=== PATIENT | female | born 1995 | race Two or more races ===

== ENCOUNTER 2019-10-28 12:05 | Outpatient (CLI) | payer OTHER ==
[2019-10-28 12:42] LABS: MICROSCOPIC INDICATED
[2019-10-28] MEDS ORDERED: ONDANSETRON 2MG/ML, 2ML ONE (12:43)
[2019-10-28 13:00] LABS: RAPID INFLUENZA A Negative (Negative); RAPID INFLUENZA B Negative (Negative)
[2019-10-28] MEDS ORDERED: PLEASE ENTER HEIGHT AND WEIGHT MC SCH (13:00)
[2019-10-28] MEDS ORDERED: ONDANSETRON 2MG/ML, 2ML IVPush PRN (13:00)
[2019-10-28] MEDS ORDERED: LACTATED RINGERS 1,000 ML IVBOLUS ONE (13:00)
[2019-10-28] MEDS ORDERED: D5%-LACTATED RINGERS 1,000 ML IV SCH (13:00)
[2019-10-28] MEDS ORDERED: ONDA4TAB7 PO (14:31)
== END 2019-10-28 15:01 | disposition home or self-care (01) ==
LOC: LDOP 12:05
PROVIDERS: ATTEND Obstetrics & Gynecology
DX: O21.2 Late vomiting of pregnancy (principal); O99.613 Diseases of the digestive system complicating pregnancy, third trimester; K52.9 Noninfective gastroenteritis and colitis, unspecified; O26.893 Other specified pregnancy related conditions, third trimester; R25.2 Cramp and spasm; Z3A.33 33 weeks gestation of pregnancy
CPT/HCPCS: 59025; 81001; 87400; 96361; 96374; 99201; J2405; J7120; 96360; G0463

== ENCOUNTER 2019-12-13 12:13 | Inpatient (IN) | payer OTHER ==
[~2019-12-13] VITALS: Ht 160 cm; Wt 99.1 kg
[~2019-12-13 12:13] MED LIST: ONDA4TAB7 PO
[2019-12-13 20:48] VITALS: BP 121/79
[2019-12-13] MEDS: LACTATED RINGERS 1,000 ML IV SCH (21:30)
[2019-12-13] MEDS ORDERED: OXYTOCIN 30U/ 0.9% NaCL 500ML 500 ML IV ONE (21:31)
[2019-12-13] MEDS ORDERED: MISOPROSTOL 200 MCG TABLET ONE (21:48)
[2019-12-13] MEDS ORDERED: NEWBORN KIT ONE (21:48)
[2019-12-13] MEDS ORDERED: MISOPROSTOL 25 MCG TABLET ONE (21:48)
[2019-12-13] MEDS ORDERED: LIDOCAINE 1%, 20ML ONE (21:48)
[2019-12-13 21:51] LABS: BASOPHILS # (AUTO) 0.01 x10^3/uL (0-0.1); BASOPHILS % (AUTO) 0 % (0-1); EOSINOPHILS # (AUTO) 0.06 x10^3/uL (0-0.4); EOSINOPHILS % (AUTO) 1 % (1-7); LYMPHOCYTES # (AUTO) 2.51 x10^3/uL (1-3.4); LYMPHOCYTES % (AUTO) 29 % (22-44); MD NO; MEAN CORPUSCULAR HGB CONC 34.1 g/dL (32.4-35.8); MEAN CORPUSCULAR VOLUME 88.1 fL (80-100); MEAN PLATELET VOLUME 10.5 fL (7.4-10.4); MONOCYTES # (AUTO) 0.53 x10^3/uL (0.2-0.8); MONOCYTES % (AUTO) 6 % (2-9); NEUTROPHILS % (AUTO) 65 % (42-75); PLATELET COUNT 196 x10^3/uL (130-400); RED BLOOD COUNT 3.99 x10^6/uL (3.82-5.3); RED CELL DISTRIBUTION WIDTH 13.5 % (9.6-15.2)
[2019-12-13] MEDS ORDERED: FENTANYL PF 100 MCG/2ML IVPush PRN (22:00)
[2019-12-13] MEDS ORDERED: ONDANSETRON 2MG/ML, 2ML IVPush PRN (22:00)
[2019-12-13] MEDS ORDERED: TERBUTALINE 1 MG/ML, 1ML IVPush PRN (22:00)
[2019-12-13] MEDS ORDERED: CALCIUM CARBONATE 500 MG TAB.CHEW PO PRN (22:00)
[2019-12-13] MEDS ORDERED: MISOPROSTOL 25 MCG TABLET VG PRN (22:00)
[2019-12-13] MEDS ORDERED: TERBUTALINE 1 MG/ML, 1ML SQ PRN (22:00)
[2019-12-13] MEDS ORDERED: FENTANYL PF 100 MCG/2ML IV PRN (22:00)
[2019-12-14] MEDS: LACTATED RINGERS 1,000 ML IV SCH ×5 (01:08→23:59)
[2019-12-14] MEDS ORDERED: OXYTOCIN 30U/ 0.9% NaCL 500ML 500 ML ONE (03:22)
[2019-12-14] MEDS ORDERED: FENTANYL/BUPIV./NS/PF 250 ML EPIDCONT SCH ×2 (03:24→05:41)
[2019-12-14] MEDS ORDERED: FENTANYL PF 500 MCG, BUPIVACAINE/PF 0.5%, 30ML 62.5 ML in SODIUM CHLORIDE 0.9% 177.5 ML EPIDCONT SCH (03:30)
[2019-12-14] MEDS: OXYTOCIN 30U/ 0.9% NaCL 500ML 500 ML IV PRN ×2 (03:46→08:17)
[2019-12-14] MEDS ORDERED: BUPIVACAINE 0.25% ONE ×2 (04:27→05:00)
[2019-12-14] MEDS ORDERED: FENTANYL PF 100 MCG/2ML ONE ×4 (04:27→23:07)
[2019-12-14] MEDS ORDERED: FENTANYL/BUPIV./NS/PF 250 ML EPIDCONT ONE (05:00)
[2019-12-14] MEDS ORDERED: LIDOCAINE/PF 1.5%-EPI 1:200K, 30ML ONE (05:00)
[2019-12-14] MEDS ORDERED: LACTATED RINGERS 1,000 ML IV SCH (05:41)
[2019-12-14] MEDS ORDERED: EPHEDRINE 50 MG/ML, 1ML IVPush PRN (06:00)
[2019-12-14] MEDS ORDERED: LACTATED RINGERS 1,000 ML IVBOLUS PRN (06:00)
[2019-12-14] MEDS ORDERED: ONDANSETRON 2MG/ML, 2ML IVPush PRN (06:00)
[2019-12-14] MEDS: D5%-LACTATED RINGERS 1,000 ML IV SCH ×2 (06:34→17:06)
[2019-12-14] MEDS: LACTATED RINGERS 1,000 ML INTUTE SCH ×2 (11:27→20:58)
[2019-12-14] MEDS ORDERED: PREN1TAB60 PO (11:28)
[2019-12-14] MEDS ORDERED: LACTATED RINGERS 1,000 ML INTUTE PRN (11:30)
[2019-12-14] MEDS ORDERED: ACETAMINOPHEN 650 MG SUPP PR PRN (17:00)
[2019-12-14] MEDS ORDERED: ACETAMINOPHEN 325 MG TABLET ONE (17:04)
[2019-12-14] MEDS ORDERED: ACETAMINOPHEN 325 MG TABLET PO PRN ×3 (17:30→21:00)
[2019-12-14] MEDS: OXYTOCIN 30U/ 0.9% NaCL 500ML 500 ML IV SCH (20:48)
[2019-12-14] MEDS ORDERED: METOCLOPRAMIDE 5 MG/ML, 2ML IV ONE (21:00)
[2019-12-14] MEDS ORDERED: AZITHROMYCIN 500 MG in SODIUM CHLORIDE 0.9% 250 ML IV ONE (21:00)
[2019-12-14] MEDS ORDERED: CALCIUM CARBONATE 500 MG TAB.CHEW PO PRN (21:00)
[2019-12-14] MEDS: KETOROLAC 30 MG/1 ML IV SCH (21:00)
[2019-12-14] MEDS ORDERED: DIPH,PERTUSS(ACELL),TET VAC/PF NC IM-VACC PRN (21:00)
[2019-12-14] MEDS ORDERED: MEASLES,MUMPS&RUBELLA VACC/PF 0.5 ML SQ-VACC PRN (21:00)
[2019-12-14] MEDS ORDERED: CEFAZOLIN PMX 1GM/50ML 50 ML IVPB ONE (21:00)
[2019-12-14] MEDS ORDERED: SODIUM CITRATE/CITRIC ACID 30 ML UDC PO ONE (21:00)
[2019-12-14] MEDS ORDERED: MISOPROSTOL 200 MCG TABLET PR PRN (21:00)
[2019-12-14] MEDS ORDERED: MORPHINE SULFATE 4 MG/ML, 1ML IVPush PRN (21:00)
[2019-12-14] MEDS ORDERED: ONDANSETRON 2MG/ML, 2ML IV PRN (21:00)
[2019-12-14] MEDS ORDERED: ONDANSETRON 2MG/ML, 2ML ONE (21:04)
[2019-12-14] MEDS ORDERED: CEFAZOLIN 1,000 MG ONE (21:04)
[2019-12-14] MEDS ORDERED: OXYTOCIN 10 UNITS/ML, 1ML ONE (21:04)
[2019-12-14] MEDS ORDERED: HYDROmorphone 2 MG/ML, 1ML ONE (21:04)
[2019-12-14] MEDS ORDERED: SODIUM CHLORIDE 0.9% PF 10ML ONE ×2 (21:05)
[2019-12-14] MEDS ORDERED: KETOROLAC 30 MG/1 ML ONE (21:53)
[2019-12-14] MEDS ORDERED: LIDOCAINE PF 2%, 5ML ONE (21:53)
[2019-12-14] MEDS ORDERED: LIDOCAINE-MPF 2% ,5ML ONE ×3 (22:13)
[2019-12-14] MEDS ORDERED: NEWBORN KIT ONE (22:33)
[2019-12-14] MEDS ORDERED: PROPOFOL 10 MG/ML, 20ML ONE (22:41)
[2019-12-14] MEDS ORDERED: OXYcodone 5 MG/5 ML ORAL.SOL UDC ONE (23:07)
[2019-12-14] MEDS ORDERED: OXYcodone 5 MG/5 ML ORAL.SOL UDC PO PRN (23:30)
[2019-12-14] MEDS: FENTANYL PF 100 MCG/2ML IV PRN ×2 (23:43→23:57)
[2019-12-15 01:00] VITALS: BP 116/80
[2019-12-15 04:05] VITALS: BP 116/71
[2019-12-15] MEDS: LACTATED RINGERS 1,000 ML IV SCH ×5 (04:48→20:48)
[2019-12-15] MEDS: KETOROLAC 30 MG/1 ML IV SCH ×4 (05:04→23:13)
[2019-12-15] MEDS: SIMETHICONE 80 MG CHEW TAB PO PRN ×3 (05:04→21:31)
[2019-12-15] MEDS ORDERED: OXYcodone/APAP 5/325MG TABLET ONE (05:13)
[2019-12-15] MEDS: OXYcodone/APAP 5/325MG TABLET PO PRN ×5 (05:15→21:30)
[2019-12-15] MEDS: OXYTOCIN 30U/ 0.9% NaCL 500ML 500 ML IV SCH ×2 (06:48→16:48)
[2019-12-15 07:15] LABS: MEAN CORPUSCULAR HEMOGLOBIN 30.1 pg (27.0-34.8); MEAN CORPUSCULAR HGB CONC 33.6 g/dL (32.4-35.8); MEAN CORPUSCULAR VOLUME 89.6 fL (80-100); MEAN PLATELET VOLUME 10.1 fL (7.4-10.4); PLATELET COUNT 146 x10^3/uL (130-400); RED CELL DISTRIBUTION WIDTH 13.1 % (9.6-15.2)
[2019-12-15 07:44] VITALS: BP 110/71
[2019-12-15 08:18] LABS: MD YES
[2019-12-15 08:34] LABS: <PLATELET ESTIMATE> ADEQUATE; <PLT MORPHOLOGY> NORMAL PLT MORPH; <RBC MORPHOLOGY> NORMAL; BAND#(MANUAL) 2.45 x10^3/uL; BANDS%(MANUAL) 14 % (0-7); LYMPHS% (MANUAL) 12 % (22-44); MONOS#(MANUAL) 1.23 x10^3/uL (0.3-2.7); MONOS% (MANUAL) 7 % (2-9); SEG#(MANUAL) 11.73 x10^3/uL (1.8-6.8); SEGS% (MANUAL) 67 % (42-75)
[2019-12-15] MEDS: PRENATAL VIT/IRON/FA 1 EACH TABLET PO SCH (09:03)
[2019-12-15] MEDS: DOCUSATE 100 MG CAPSULE PO PRN ×2 (09:03→21:31)
[2019-12-15 12:00] VITALS: BP 104/52
[2019-12-15 20:05] VITALS: BP 108/64
[2019-12-16] MEDS: OXYcodone/APAP 5/325MG TABLET PO PRN ×5 (01:30→20:32)
[2019-12-16] MEDS: OXYTOCIN 30U/ 0.9% NaCL 500ML 500 ML IV SCH ×2 (02:48→22:48)
[2019-12-16] MEDS: LACTATED RINGERS 1,000 ML IV SCH ×4 (02:48→22:48)
[2019-12-16] MEDS: SIMETHICONE 80 MG CHEW TAB PO PRN ×2 (05:12→15:59)
[2019-12-16] MEDS: KETOROLAC 30 MG/1 ML IV SCH ×3 (05:12→17:14)
[2019-12-16 08:00] VITALS: BP 99/65
[2019-12-16 20:20] VITALS: BP 113/74
[2019-12-16] MEDS: DOCUSATE 100 MG CAPSULE PO PRN (20:32)
[2019-12-16] MEDS: PRENATAL VIT/IRON/FA 1 EACH TABLET PO SCH (23:59)
[2019-12-17] MEDS: SIMETHICONE 80 MG CHEW TAB PO PRN ×2 (00:47→07:47)
[2019-12-17] MEDS: OXYcodone/APAP 5/325MG TABLET PO PRN ×2 (00:47→05:14)
[2019-12-17] MEDS: IBUPROFEN 600 MG TABLET PO PRN ×2 (00:47→07:47)
[2019-12-17] MEDS: LACTATED RINGERS 1,000 ML IV SCH ×3 (04:48→12:48)
[2019-12-17 07:45] VITALS: BP 122/84
[2019-12-17] MEDS: PRENATAL VIT/IRON/FA 1 EACH TABLET PO SCH (07:47)
[2019-12-17] MEDS: DOCUSATE 100 MG CAPSULE PO PRN (07:47)
[2019-12-17] MEDS: OXYTOCIN 30U/ 0.9% NaCL 500ML 500 ML IV SCH (08:48)
[2019-12-17] MEDS ORDERED: IBUP-1222 PO (09:19)
[2019-12-17] MEDS ORDERED: DOCU-131 PO (09:20)
[2019-12-17] MEDS ORDERED: OXYC-302 PO (09:20)
== END 2019-12-17 13:40 | disposition home or self-care (01) | DRG 788 ==
LOC: LDIP 20:36 → 2NW 12-15 01:30
PROVIDERS: ADMIT Obstetrics & Gynecology; ATTEND Obstetrics & Gynecology
PROC: 10D00Z1 Extraction of Products of Conception, Low, Open Approach (ICD-10-PCS; principal; 2019-12-14)
DX: O48.0 Post-term pregnancy (principal); O69.81X0 Labor and delivery complicated by cord around neck, without compression, not applicable or unspecified; O76 Abnormality in fetal heart rate and rhythm complicating labor and delivery; O77.0 Labor and delivery complicated by meconium in amniotic fluid; O99.52 Diseases of the respiratory system complicating childbirth; J45.909 Unspecified asthma, uncomplicated; O62.0 Primary inadequate contractions; Z3A.40 40 weeks gestation of pregnancy; Z82.3 Family history of stroke; Z87.891 Personal history of nicotine dependence; Z37.0 Single live birth
CPT/HCPCS: 36415; J3490; J7121; 82803; 85025; 86592; 86850; 86900; G0378; J0456; J0690; J1170; J1885; J2405; J2704; J3010; J2270; J2590; J2765; J7050; J7120